=== PATIENT | female | born 1960 ===

== ENCOUNTER 2017-07-22 14:50 | Emergency (ER) | payer BC ==
--- NOTE | 2017-07-22 15:16 | UC ---
Hypertension HPI - HPI Summary HPI Summary: See other note from same DOS - History of Current Complaint Chief Complaint: UCDentalProblem Stated Complaint: HIGH BLOOD PRESSURE - Allergies/Home Medications Allergies/Adverse Reactions: Allergies Allergy/AdvReac Type Severity Reaction Status Date / Time No Known Allergies Allergy Verified 07/22/17 15:05 PMH/Surg Hx/FS Hx/Imm Hx - Surgical History Surgical History: Yes Surgery Procedure, Year, and Place: c section X2 - Social History Alcohol Use: None Substance Use Type: None Smoking Status (MU): Former Smoker Review of Systems All Other Systems Reviewed And Are Negative: Yes Physical Exam Triage Information Reviewed: Yes Vital Signs: Initial Vital Signs Temp 99.2 F 07/22/17 14:59 Pulse 82 07/22/17 14:59 Resp 18 07/22/17 14:59 BP 191/99 07/22/17 14:59 Pulse Ox 97 07/22/17 14:59 Hypertension Course/Dx - Differential Dx/Diagnosis Provider Diagnoses: Hypertension Discharge - Sign-Out/Discharge Documenting (check all that apply): Discharge - Discharge Plan Condition: Stable Disposition: HOME Prescriptions: Amlodipine Besylate [Norvasc 5 mg tab] 5 mg PO DAILY #30 tab Patient Education Materials: Chronic Hypertension (DC) Referrals: No Primary Care Phys,NOPCP [Primary Care Provider] - Additional Instructions: Instructions: 1. Please establish with primary care provider 2. Take medication as directed - Billing Disposition and Condition Condition: STABLE Disposition: HOME
[2017-07-22 15:37] VITALS: BP 130/90
--- NOTE | 2017-07-22 15:39 | UC ---
Hypertension HPI - HPI Summary HPI Summary: This is an otherwise healthy 56 yo female who was told by her dentist that she has high blood pressure. Reports a fam hx of HTN, no other heart dz. No c/o BORGES , CP, palpitations or blurred vision. She reports that she has checked her BP at the pharmacy in the past and states it usually 140-160 mmHg. She does not have a PCP. - History of Current Complaint Chief Complaint: UCDentalProblem Stated Complaint: HIGH BLOOD PRESSURE - Allergies/Home Medications Allergies/Adverse Reactions: Allergies Allergy/AdvReac Type Severity Reaction Status Date / Time No Known Allergies Allergy Verified 07/22/17 15:05 PMH/Surg Hx/FS Hx/Imm Hx Previously Healthy: Yes - Surgical History Surgical History: Yes Surgery Procedure, Year, and Place: c section X2 - Family History Known Family History: Positive: Hypertension - Social History Alcohol Use: None Substance Use Type: None Smoking Status (MU): Former Smoker Review of Systems Constitutional: Negative Skin: Negative Eyes: Negative ENT: Negative Respiratory: Negative Cardiovascular: Negative Gastrointestinal: Negative Genitourinary: Negative Motor: Negative Neurovascular: Negative Musculoskeletal: Negative Neurological: Negative Psychological: Negative Is Patient Immunocompromised?: No All Other Systems Reviewed And Are Negative: Yes Physical Exam Triage Information Reviewed: Yes Appearance: Well-Appearing Vital Signs: Initial Vital Signs Temp 99.2 F 07/22/17 14:59 Pulse 82 07/22/17 14:59 Resp 18 07/22/17 14:59 BP 191/99 07/22/17 14:59 Pulse Ox 97 07/22/17 14:59 Repeat BP 130/90 (manual check) Vital Signs Reviewed: Yes ENT Exam: Normal ENT: Positive: Normal ENT inspection Dental Exam: Normal Neck exam: Normal Neck: Positive: Supple, Nontender Respiratory Exam: Normal Respiratory: Positive: Chest non-tender Cardiovascular Exam: Normal Cardiovascular: Positive: RRR, No Murmur Abdominal Exam: Normal Abdomen Description: Positive: Nontender, Soft Musculoskeletal Exam: Normal Musculoskeletal: Positive: Strength Intact, ROM Intact Neurological Exam: Normal Neurological: Positive: Alert Psychological Exam: Normal Skin Exam: Normal Diagnostics - Laboratory Diagnostic Studies Completed/Ordered: 12-L EKG - sinus, nl axis, no ST seg changes Hypertension Course/Dx - Course Course Of Treatment: Asymptomatic 56 yo female with HTN. Start amlodipine. Recommend establishing with primary care provider. Information given for [facility]. - Differential Dx/Diagnosis Differential Diagnosis/HQI PQRI: Hypertension, Hypertensive Crisis, Hypertensive Urgency Provider Diagnoses: Hypertension Discharge - Sign-Out/Discharge Documenting (check all that apply): Discharge - Discharge Plan Condition: Stable Disposition: HOME Prescriptions: Amlodipine Besylate [Norvasc 5 mg tab] 5 mg PO DAILY #30 tab Patient Education Materials: Chronic Hypertension (DC) Referrals: No Primary Care Phys,NOPCP [Primary Care Provider] - Additional Instructions: Instructions: 1. Please establish with primary care provider 2. Take medication as directed - Billing Disposition and Condition Condition: STABLE Disposition: HOME
== END 2017-07-22 15:40 | disposition home or self-care (01) ==
LOC: UCEAST 14:50
DX: I10 Essential (primary) hypertension (principal); Z87.891 Personal history of nicotine dependence
CPT/HCPCS: 93005; 99202; G0463